=== PATIENT | female | born 1990 | race Two or more races ===

== ENCOUNTER 2020-08-23 11:58 | Outpatient (CLI) | payer MEDICAID, OTHER ==
[~2020-08-23] VITALS: Ht 157.5 cm; Wt 67.3 kg
[2020-08-23] MEDS ORDERED: PREN1TAB60 PO (12:09)
[2020-08-23] MEDS ORDERED: folic acid PO (12:09)
[2020-08-23] MEDS ORDERED: d3 (12:09)
[2020-08-23] MEDS ORDERED: LAMO150T3 PO (12:09)
[2020-08-23 12:12] VITALS: BP 110/60
== END 2020-08-23 13:32 | disposition home or self-care (01) ==
LOC: LDOP 11:58
PROVIDERS: ATTEND Obstetrics & Gynecology
DX: O36.8330 Maternal care for abnormalities of the fetal heart rate or rhythm, third trimester, not applicable or unspecified (principal); R00.0 Tachycardia, unspecified; Z3A.32 32 weeks gestation of pregnancy
CPT/HCPCS: 59025